=== PATIENT | male | born 1980 | race Caucasian/White ===

== ENCOUNTER → 2019-08-25 | Outpatient (CLI) | payer OTHER ==
--- NOTE | 2019-08-25 13:35 | RADIOLOGY REPORT (SQ) ---
EXAM DESCRIPTION: U/S EXTREMITY NONVASCULAR COMP COMPLETED DATE/TIME: 08/25/2019 11:17 am REASON FOR STUDY: LEFT PALM LUMP COMPARISON: None. TECHNIQUE: Dynamic and static grayscale images acquired of the localized site of clinical concern an d recorded on PACS. Additional selected color Doppler and spectral images recorded. SITE OF CONCERN: Left palm. LIMITATIONS: None. FINDINGS: Imaging of the area of concern in the palmar aspect of the left hand shows a 12 x 9 x 6 mm definable mass with cystic component. IMPRESSION: Likely ganglion in the palmar aspect of the left hand between the 4th and 5th metacarpal s. TECHNICAL DOCUMENTATION: JOB ID: [id number] [employer]- All Rights Reserved Reading location - IP/workstation name: [email or web address]
== END ==
LOC: RAD 10:08
PROVIDERS: ATTEND Clinical Nurse Specialist Adult Health
DX: M67.442 Ganglion, left hand (principal); M79.642 Pain in left hand
CPT/HCPCS: 76881

== ENCOUNTER 2020-01-25 10:50 | Emergency (ER) | payer OTHER ==
[2020-01-25 11:25] LABS: APPEARANCE,URINE CLEAR; BILIRUBIN,URINE NEGATIVE (NEGATIVE); COLOR,URINE YELLOW; GLUCOSE, URINE NEGATIVE (NEGATIVE); KETONES,URINE NEGATIVE (NEGATIVE); LEUKOCYTE ESTERASE,URINE NEGATIVE (NEGATIVE); NITRITE,URINE NEGATIVE (NEGATIVE); PROTEIN,URINE NEGATIVE (NEGATIVE); URINE SPECIFIC GRAVITY 1.009; UROBILINOGEN,URINE NEGATIVE mg/dL (<2.0)
--- NOTE | 2020-01-25 11:44 | EKG REPORT ---
SEVERITY:- ABNORMAL ECG - SINUS RHYTHM NONSPECIFIC INTRAVENTRICULAR CONDUCTION DELAY NONSPECIFIC ST-T CHANGES- INFERIOR LEADS : Confirmed by: Skyler Palomo MD 25-Jan-2020 11:43:41
[2020-01-25 11:45] LABS: ABSOLUTE BASOPHILS # (AUTO) 0.1 10^3/uL (0.0-0.2); ABSOLUTE EOSINOPHILS # (AUTO) 0.1 10^3/uL (0.0-0.6); ABSOLUTE LYMPHOCYTES (AUTO) 2.8 10^3/uL (0.5-4.7); ABSOLUTE NEUT (AUTO) 7.5 10^3/uL (1.7-8.2); BASOPHILS % (AUTO) 0.6 % (0-2); EOSINOPHILS % (AUTO) 0.8 % (0-6); HEMATOCRIT 42.5 % (37.9-51.0); HEMOGLOBIN 14.8 g/dL (13.5-17.0); LYMPHOCYTES % (AUTO) 24.2 % (13-45); MEAN CORPUSCULAR HEMOGLOBIN 30.9 pg (27.0-33.4); MEAN CORPUSCULAR HGB CONC 34.8 g/dL (32.0-36.0); MEAN CORPUSCULAR VOLUME 89 fl (80-97); MONOCYTES % (AUTO) 8.5 % (3-13); PLATELET COUNT 312 10^3/uL (150-450); RED BLOOD COUNT 4.78 10^6/uL (4.35-5.55); RED CELL DISTRIBUTION WIDTH 13.3 % (11.5-14.0); SEGMENTED NEUTROPHILS % (AUTO) 65.9 % (42-78); TOTAL CELLS COUNTED % (AUTO) 100 %; WHITE BLOOD COUNT 11.4 10^3/uL (4.0-10.5)
--- NOTE | 2020-01-25 11:51 | ER Document Report ---
ED General - General Chief Complaint: General Weakness Stated Complaint: BODY WEAKNESS Time Seen by Provider: 01/25/20 11:07 Primary Care Provider: TRINI BENZ NP [Primary Care Provider] - Follow up as needed Notes: CHIEF COMPLAINT: Fever and generalized weakness HPI: 39-year-old male presenting to the emergency department complaining of 10 days of illness. Patient states his son had a fever without other specific complaints for 24 hours. This was 10 days ago. Patient then developed a fever the next day and has had intermittent fevers up to 103 over the first 3 days of his illness. He works at the [employer]. He went and had COVID screening done as well as flu and strep testing which were all negative. Patient states he has a very slight dry cough. Mild sore throat. Denies headache or neck pain. Denies shortness of breath. Denies abdominal pain nausea vomiting or dysuria. States he is circumcised. Denies testicular pain. Patient states he has continued to not feel well becoming very exertionally tired with activities but does not develop chest pain or shortness of breath with activities. Patient called his PCP who referred the patient into the emergency department today ROS: See HPI - all other systems were reviewed and are otherwise negative Constitutional: Subjective fever Eyes: no drainage, no blurred vision ENT: no runny nose, no sore throat Cardiovascular: no chest pain Resp: no SOB, no cough GI: no vomiting, no diarrhea, no abdominal pain : no dysuria Integumentary: no rash Allergy: no hives Musculoskeletal: no extremity pain or swelling Neurological: no numbness/tingling, no weakness but complains of generalized tiredness MEDICATIONS: I agree with the patient medications as charted by the RN. ALLERGIES: I agree with the allergies as charted by the RN. PAST MEDICAL HISTORY/PAST SURGICAL HISTORY: Reviewed and agree as charted by RN. SOCIAL HISTORY: Reviewed and agree as charted by RN. FAMILY HISTORY: No significant familial comorbid conditions directly related to patient complaint EXAM: Reviewed vital signs as charted by RN. CONSTITUTIONAL: Alert and oriented and responds appropriately to questions. Well-appearing; well-nourished, no acute distress HEAD: Normocephalic; atraumatic EYES: PERRL; Conjunctivae clear, sclerae non-icteric ENT: normal nose; no rhinorrhea; moist mucous membranes; pharynx without lesions noted, no uvula edema or deviation, no tonsillar hypertrophy, phonation normal NECK: Supple without meningismus; non-tender; no cervical lymphadenopathy, no masses CARD: RRR; no murmurs, no clicks, no rubs, no gallops; symmetric distal pulses RESP: Normal chest excursion without splinting or tachypnea; breath sounds clear and equal bilaterally; no wheezes, no rhonchi, no rales, pulse oximetry 99% on room air not hypoxic ABD/GI: Normal bowel sounds; non-distended; soft, non-tender, no rebound, no guarding; no palpable organomegaly or masses. BACK: The back appears normal and is non-tender to palpation, there is no CVA tenderness EXT: Normal ROM in all joints; non-tender to palpation; no cyanosis, no effusions, no edema SKIN: Normal color for age and race; warm; dry; good turgor; no acute lesions noted NEURO: Moves all extremities equally; Motor and sensory function intact PSYCH: The patient's mood and manner are appropriate. Grooming and personal hygiene are appropriate. MDM: 39-year-old male with vague symptoms including fevers and generalized myalgia over the last 10 days. Had negative flu strep and COVID testing 1 week ago. Does not have any specific complaints other than generalized weakness. Does not have headache or neck pain suggesting meningitis. Does not have significant cough suggesting pneumonia but will obtain chest x-ray given his upper respiratory complaints. Has no abdominal pain on exam. Will check screening labs will also include mononucleosis screening. TRAVEL OUTSIDE OF THE [place] IN LAST 30 DAYS: No - Related Data Allergies/Adverse Reactions: No Known Allergies Allergy (Verified 01/25/20 11:00) Past Medical History - Social History Smoking Status: Never Smoker Frequency of alcohol use: Rare Drug Abuse: None Family History: None Patient has homicidal ideation: No - Past Medical History Cardiac Medical History: Denies: Hx Coronary Artery Disease, Hx Heart Attack, Hx Hypertension Pulmonary Medical History: Denies: Hx Asthma, Hx Bronchitis, Hx COPD, Hx Pneumonia Neurological Medical History: Denies: Hx Cerebrovascular Accident, Hx Seizures Musculoskeletal Medical History: Denies Hx Arthritis Past Surgical History: Reports: Hx Appendectomy, Hx Tonsillectomy - Immunizations Hx Diphtheria, Pertussis, Tetanus Vaccination: No Physical Exam - Vital signs Vitals: Temp 98.2 F 01/25/20 10:53 Course - Re-evaluation Re-evalutation: 01/25/20 12:39 Chest x-ray on my review does not show evidence of infiltrate. Patient's lab work does not show acute emergent abnormalities. Does have some hematuria will refer to urology but no definitive source for infection likely a viral etiology. Will discharge home symptomatic treatment follow-up PCP - Vital Signs Vital signs: Temp Pulse Resp BP Pulse Ox 98.2 F 53 L 18 126/70 H 98 01/25/20 10:59 01/25/20 12:00 01/25/20 10:59 01/25/20 12:00 01/25/20 10:59 - Laboratory Result Diagrams: 01/25/20 11:36 01/25/20 11:36 Laboratory results interpreted by me: 01/25/20 01/25/20 01/25/20 11:10 11:36 11:36 WBC 11.4 H Carbon Dioxide 31 H BUN 22 H Urine Blood MODERATE H Urine Ascorbic Acid 20 H Discharge - Discharge Clinical Impression: Viral syndrome Hematuria Qualifiers: Hematuria type: unspecified type Qualified Code(s): R31.9 - Hematuria, unspecified Condition: Stable Disposition: HOME, SELF-CARE Additional Instructions: Your chest x-ray and lab work today did not show any acute abnormalities. It was noted that there was some blood in your urine but no signs of infection, follow this up with urology. There was not a definitive reason found today for the symptoms you are experiencing. Continue to hydrate well at home, Motrin or Tylenol for pain follow-up with your primary care provider for reevaluation as needed Referrals: TRINI BENZ NP [Primary Care Provider] - Follow up as needed CHRISTELLE LUJAN MD [NO LOCAL MD] - Follow up as needed
[2020-01-25 12:05] LABS: A TYPE INFLUENZA AG NEGATIVE (NEGATIVE); B INFLUENZA AG NEGATIVE (NEGATIVE)
[2020-01-25 12:12] LABS: ALBUMIN 4.2 g/dL (3.5-5.0); ALKALINE PHOSPHATASE 64 U/L (38-126); ANION GAP 7 (5-19); ASPARTATE AMINO TRANSFERASE 23 U/L (17-59); BILIRUBIN,TOTAL 0.7 mg/dL (0.2-1.3); BLOOD UREA NITROGEN 22 mg/dL (7-20); CALCIUM 8.9 mg/dL (8.4-10.2); CARBON DIOXIDE 31 mmol/L (22-30); CHLORIDE 99 mmol/L (98-107); CREATINE KINASE 104 U/L (55-170); GLUCOSE 96 mg/dL (75-110); POTASSIUM 4.5 mmol/L (3.6-5.0); TOTAL PROTEIN 7.5 g/dL (6.3-8.2)
--- NOTE | 2020-01-25 12:53 | RADIOLOGY REPORT (SQ) ---
EXAM DESCRIPTION: CHEST SINGLE VIEW IMAGES COMPLETED DATE/TIME: 01/25/2020 12:43 pm REASON FOR STUDY: cough fever COMPARISON: None. EXAM PARAMETERS: NUMBER OF VIEWS: One view. TECHNIQUE: An AP view of the chest was obtained. RADIATION DOSE: NA LIMITATIONS: None. FINDINGS: LUNGS AND PLEURA: No consolidation, pleural effusion or pneumothorax. MEDIASTINUM AND HILAR STRUCTURES: No mediastinal or hilar contour abnormality. HEART AND VASCULAR STRUCTURES: The cardiac silhouette and pulmonary vasculature are within normal [place] its. BONES: No acute findings. HARDWARE: None in the chest. OTHER: No other finding. IMPRESSION: No acute cardiopulmonary process. TECHNICAL DOCUMENTATION: JOB ID: [id number] [employer]- All Rights Reserved Reading location - IP/workstation name: [email or web address]
[2020-01-25 13:00] VITALS: BP 128/62
== END 2020-01-25 13:03 | disposition home or self-care (01) ==
LOC: ER 10:50
DX: B34.9 Viral infection, unspecified (principal); R31.9 Hematuria, unspecified; R50.9 Fever, unspecified; R53.1 Weakness
CPT/HCPCS: 36415; 71045; 80053; 81001; 82550; 84484; 85025; 86308; 87070; 87077; 87804; 87880; 93005; 93010; 99284

== ENCOUNTER 2020-06-04 09:39 | Emergency (ER) | payer OTHER ==
[2020-06-04 09:45] VITALS: BP 133/70
--- NOTE | 2020-06-04 10:35 | ER Document Report ---
ED General - General Stated Complaint: LIP INJURY Time Seen by Provider: 06/04/20 10:29 Primary Care Provider: TRINI BENZ NP [Primary Care Provider] - Follow up as needed EM LYON MD [ACTIVE STAFF] - Follow up as needed TRAVEL OUTSIDE OF THE [place] IN LAST 30 DAYS: No - HPI Notes: 40-year-old male presents to the emergency room today for evaluation for a laceration to his right upper lip after he was moving some objects into his car and the object accidentally slipped and cut his lip approximately an hour ago. Unsure of his last tetanus. Denies any his head or change in level consciousness. Has not tried any [id number]-hkn-[id number] medications. Bleeding is controlled. Pain is 2 out of 5, throbbing achy. Denies any other area of injury. Denies fevers, chills, chest pain,palpitations, shortness of breath, dyspnea, nausea, vomiting, diarrhea, abdominal pain, hematuria,blurred vision, double vision, loss of vision, speech changes, LH, dizziness, syncope, headaches, wheezing, ST, URI, neck pain, weakness, bowel or bladder dysfunction, saddle anesthesia, numbness or tingling in bilateral upper or lower extremities equally, muscle paralysis, weakness in bilateral upper or lower extremities equally or rash. Denies IV drug use. MEDICATIONS: I agree with the patient medications as charted by the RN. ALLERGIES: I agree with the allergies as charted by the RN. PAST MEDICAL HISTORY/PAST SURGICAL HISTORY: Reviewed and agree as charted by RN. SOCIAL HISTORY: Reviewed and agree as charted by RN. FAMILY HISTORY: No significant familial comorbid conditions directly related to patient complaint EXAM: Reviewed vital signs as charted by RN. REVIEW OF SYSTEMS:reviewed vital signs by RN CONSTITUTIONAL : Denies fever, chills, or sweats. Denies recent illness. EENT: Denies eye, ear, throat, or mouth pain or symptoms. Denies nasal or sinus congestion or discharge. Denies throat, tongue, or mouth swelling or difficulty swallowing. Laceration to his right upper lip CARDIOVASCULAR: Denies chest pain. Denies palpitations or racing or irregular heart beat. Denies ankle edema. RESPIRATORY: Denies cough, cold, or chest congestion. Denies shortness of breath, difficulty breathing, or wheezing. GASTROINTESTINAL: Denies abdominal pain or distention. Denies nausea, vomiting, or diarrhea. Denies blood in vomitus, stools, or per rectum. Denies black, tarry stools. Denies constipation. GENITOURINARY: Denies difficulty urinating, painful urination, burning, frequency, blood in urine, or discharge. MUSCULOSKELETAL: Denies back or neck pain or stiffness. Denies joint pain or swelling. SKIN: Reports a laceration to his right upper lip. denies rash, lesions or sores. HEMATOLOGIC : Denies easy bruising or bleeding. LYMPHATIC: Denies swollen, enlarged glands. NEUROLOGICAL: Denies confusion or altered mental status. Denies passing out or loss of consciousness. Denies dizziness or lightheadedness. Denies headache. Denies weakness or paralysis or loss of use of either side. Denies problems with gait or speech. Denies sensory loss, numbness, or tingling. Denies seizures. PSYCHIATRIC: Denies anxiety or stress. Denies depression, suicidal ideation, or homicidal ideation. ALL OTHER SYSTEMS REVIEWED AND NEGATIVE. Dictation was performed using [employer] voice recognition software PHYSICAL EXAMINATION: GENERAL: Well-appearing, well-nourished and in no acute distress. HEAD: Atraumatic, normocephalic. EYES: Pupils equal round and reactive to light, extraocular movements intact, sclera anicteric, conjunctiva are normal. ENT: Nares patent, oropharynx clear without exudates. Moist mucous membranes. No loose teeth, laceration does not all the way through to the upper lip. NECK: Normal range of motion, supple without lymphadenopathy LUNGS: Breath sounds clear to auscultation bilaterally and equal. No wheezes rales or rhonchi. HEART: Regular rate and rhythm without murmurs ABDOMEN: Soft, nontender, nondistended abdomen. No guarding, no rebound. No masses appreciated. Musculoskeletal: Normal range of motion, no pitting or edema. No cyanosis. NEUROLOGICAL: Cranial nerves grossly intact. Normal speech, normal gait. Normal sensory, motor exams PSYCH: Normal mood, normal affect. SKIN: Warm, Dry, normal turgor, no rashes or lesions noted. Right upper lip with approximately a 2.5 cm jagged laceration that does not extend beyond the vermilion border. Upper portion of the laceration very superficial, could be considered a scratch, approximately 1 cm - Related Data Allergies/Adverse Reactions: No Known Allergies Allergy (Verified 01/25/20 11:00) Past Medical History - General Information source: Patient - Social History Smoking Status: Unknown if Ever Smoked Family History: None - Past Medical History Cardiac Medical History: Denies: Hx Coronary Artery Disease, Hx Heart Attack, Hx Hypertension Pulmonary Medical History: Denies: Hx Asthma, Hx Bronchitis, Hx COPD, Hx Pneumonia Neurological Medical History: Denies: Hx Cerebrovascular Accident, Hx Seizures Musculoskeletal Medical History: Denies Hx Arthritis Past Surgical History: Reports: Hx Appendectomy, Hx Tonsillectomy - Immunizations Hx Diphtheria, Pertussis, Tetanus Vaccination: No Physical Exam - Vital signs Vitals: Temp Pulse Resp BP Pulse Ox 99.1 F 75 20 133/70 H 98 06/04/20 09:44 06/04/20 09:44 06/04/20 09:44 06/04/20 09:44 06/04/20 09:44 Course - Re-evaluation Re-evalutation: 06/04/20 14:34 Afebrile vital stable no distress. Nurses notes reviewed. Tetanus has been updated. Please refer to procedure note for lip laceration repair. Patient placed on prophylactic antibiotics. Discussed with patient that he needs to have his sutures removed in 3 to 5 days to prevent any further scarring. Wash with soap and water after 1 day. Dermabond was placed to the upper portion of the laceration as it was very superficial. Advised to follow-up with plastic surgeon as needed for cosmesis of the laceration. After performing a Medical Screening Examination, I estimate there is LOW risk for a DEEP SPACE INFECTION (e.g., NIHARIKA'S ANGINA OR RETROPHARYNGEAL ABSCESS), MENINGITIS, INTRACRANIAL HEMORRHAGE, or AIRWAY COMPROMISE, thus I consider the discharge disposition reasonable. Also, there is no evidence or peritonitis, sepsis, or toxicity. I have reevaluated this patient multiple times and no significant life threatening changes are noted. The patient and I have discussed the diagnosis and risks, and we agree with discharging home with close follow-up with the understanding that symptoms and presentations can change. We also discussed returning to the Emergency Department immediately if new or worsening symptoms occur. We have discussed the symptoms which are most concerning (e.g., changing or worsening pain, trouble swallowing or breathing, neck stiffness or fever) that necessitate immediate return. - Vital Signs Vital signs: Temp Pulse Resp BP Pulse Ox 99.1 F 75 20 133/70 H 98 06/04/20 09:44 06/04/20 09:44 06/04/20 09:44 06/04/20 09:44 06/04/20 09:44 Procedures - Laceration/Wound Repair Right Upper Face Time completed: 11:42 - R upper lip Wound length (cm): 2.5 - cm Wound's Depth, Shape: Superficial, Irregular Laceration pre-procedure: Sterile PPE donned, Sterile drapes applied, Shur-Clens applied Anesthetic type: 1% Lidocaine w/epi Volume Anesthetic (mLs): 4 - mL Wound explored: Clean Irrigated w/ Saline (mLs): 350 - mL Wound Debrided: Minimal Wound Repaired With: Sutures Suture Size/Type: 6:0, Prolene Number of Sutures: 3 - simple sutures Layer Closure?: No Complications: No Notes: 06/04/20 11:43 Verbal consent given for laceration repair. Let applied approx 0 minutes prior to procedure 300 mL's of normal saline high-pressure irrigation to wound. 4 mL's of lidocaine with epi injected no foreign bodies or debris is noted. 3 six-point 0 Prolene simple sutures placed with Dermabond placed to upper portion of laceration that was very superficial. Wound edges well approximated. Patient tolerated procedure without incident Discharge - Discharge Clinical Impression: right upper lip laceration Condition: Stable Disposition: HOME, SELF-CARE Instructions: Facial Laceration ([facility]) Additional Instructions: Please return within 3 to 5 days for suture removal of your face. Please take antibiotic twice a day with food for 5 days. Please do not get sutures wet or submerge in water. You have a small amount of Dermabond at the top of your wound because it is very superficial, please do not get that wet for 24 hours. I did give you the name of a LASIK surgeon due to the laceration being on your face, is up to you if you want to follow-up for cosmetic reasons. Please avoid any direct sun light of your sutures. Return immediately for any new or worsening symptoms. Follow up with primary care provider, call tomorrow to make followup appointment. Prescriptions: Cephalexin Monohydrate [Keflex 500 mg Capsule] 500 mg PO BID #10 capsule Forms: Return to Work Referrals: TRINI BENZ NP [Primary Care Provider] - Follow up as needed ROJY,EM, MD [ACTIVE STAFF] - Follow up as needed
[2020-06-04] MEDS ORDERED: DIPH/PERTUSS(ACELL)/TETANUS VAC/PF 0.5 ML SYR (>=10YO) IM ONE (10:43)
[2020-06-04] MEDS ORDERED: LIDOCAINE 0.5%/EPINEPHRINE INJ 50 ML VIAL INJ ONE (10:43)
[2020-06-04] MEDS ORDERED: LIDOCAINE 4%/TETRACAINE 0.5%/EPI 0.18% 5 ML TOPICAL SOLN TOP ONE (10:44)
[2020-06-04] MEDS ORDERED: LIDOCAINE 1%/EPINEPHRINE INJ 20 ML VIAL ONE (10:57)
[2020-06-04] MEDS ORDERED: HYDROCODONE/ACETAMINOPHEN 5-325 MG (6 TAB/ER DISP) PO PRN (11:41)
== END 2020-06-04 11:52 | disposition home or self-care (01) ==
LOC: ER 09:39
DX: S01.511A Laceration without foreign body of lip, initial encounter (principal); W22.8XXA Striking against or struck by other objects, initial encounter; Z23 Encounter for immunization
CPT/HCPCS: 99283; 90471; 90715; 12011; J3490 ×2